=== PATIENT | female | born 1940 | race Caucasian/White ===

== ENCOUNTER 2017-08-08 08:35 | Outpatient (CLI) | payer MEDICARE, BC ==
[2017-08-08] MEDS ORDERED: Iopamidol 370 76% 100 ML VIAL ONE (14:48)
== END 2017-08-08 08:36 | disposition home or self-care (01) ==
LOC: BICCT 08:35
PROVIDERS: ATTEND Urology
DX: N28.89 Other specified disorders of kidney and ureter (principal); N28.1 Cyst of kidney, acquired
CPT/HCPCS: 74170

== ENCOUNTER 2018-06-29 09:18 | Outpatient (CLI) | payer MEDICARE, BC ==
--- NOTE | 2018-06-29 11:13 | MRI ---
MRI OF LUMBAR SPINE WITHOUT CONTRAST: Date: 06-29-18 Comparison: None. History: Acute left sided low back pain with left lower extremity radiculopathy, left sciatica. Technique: Multiplanar, multisequence MR imaging of the lumbar spine provided without contrast. FINDINGS: The sagittal STIR imaging demonstrates no focal area of osseous marrow edema. There is mild anterolisthesis of L3-4 measuring 5-6 mm. Sagittal STIR imaging demonstrates no focal a yaya of osseous marrow edema. There is fluid signal intensity within bilateral facet joints at L3-4. O n the basis of five lumbar type vertebral bodies, the conus medullaris terminates at the T12-L1 level . T12-L1: Intervertebral disc height and signal intensity grossly unremarkable with no significant cent ral canal or neural foraminal stenosis. Incidental note is made of a benign T12 hemangioma. L1-2: Intervertebral disc height and signal intensity within normal limits. No central canal or neura l foraminal stenosis. L2-3: Moderate bilateral facet hypertrophy. Disc space narrowing, disc desiccation and disc bulge pre sent with a superimposed left paracentral disc protrusion. There is moderate central canal stenosis/l eft lateral recess stenosis. Mild bilateral neural foraminal stenosis. L3-4: A prominent facet hypertrophy and hypertrophy of ligamentum flavum. There is disc space narrowi ng, disc desiccation, and mild disc bulge with a moderate to severe degree of central canal stenosis. Mild bilateral neural foraminal stenosis. L4-5: Mild bilateral facet hypertrophy. There is disc space narrowing, disc desiccation and partial o sseous fusion at the intervertebral disc level. There is mild right neural foraminal stenosis. No sig nificant central canal or left neural foraminal stenosis. L5-S1: Disc space narrowing, disc desiccation and mild bilateral facet hypertrophy with no significan t central canal or neural foraminal stenosis. Large lobulated incompletely assessed T2 hyperintense lesion noted within the right kidney measuring up to 5.9 cm. This is consistent with a large cyst when correlated with the CT examination of the abd omen performed 08-08-17 utilizing a renal mass protocol. Additional scattered T2 hyperintensities are n oted within both kidneys suggesting additional small cysts. IMPRESSION: Significant multilevel degenerative change noted within the lumbar spine, most significant at the L2- 3 and L3-4 levels as detailed above. Fluid within the facet joints at L3-4 can be seen on the basis o f instability. Flexion and extension radiographs may be beneficial for further assessment. POS: [facility]
== END 2018-06-29 09:19 | disposition home or self-care (01) ==
LOC: BICMRI 09:18
PROVIDERS: ATTEND Internal Medicine Geriatric Medicine
DX: M54.42 Lumbago with sciatica, left side (principal); M47.816 Spondylosis without myelopathy or radiculopathy, lumbar region
CPT/HCPCS: 72148

== ENCOUNTER 2018-09-10 10:12 | Outpatient (CLI) | payer MEDICARE, BC ==
--- NOTE | 2018-09-10 11:42 | MMO ---
Bilateral MAMMO Bilat Screen [facility]. CLINICAL HISTORY: Patient is 78 years old and is seen for screening. The patient has no family history of breast cancer. The patient has a history of Skin cancer. The patient has a history of right Excisional Biopsy at age 46 - benign. VIEWS: The views performed were: bilateral craniocaudal with tomosynthesis and bilateral mediolateral oblique with tomosynthesis. FILMS COMPARED: The present examination has been compared to prior imaging studies performed at [facility] on 10/05/2011, at [facility] on 12/10/1997, and at [facility] on 06/03/2004, 05/03/2006 and 07/16/2008. MAMMOGRAM FINDINGS: There are scattered fibroglandular densities. There are no suspicious masses, suspicious calcifications, or new areas of architectural distortion. IMPRESSION: THERE IS NO MAMMOGRAPHIC EVIDENCE OF MALIGNANCY. A ROUTINE FOLLOW-UP MAMMOGRAM IN 1 YEAR IS RECOMMENDED. THE RESULTS OF THIS EXAM WERE SENT TO THE PATIENT. ACR BI-RADS Category 1 - Negative MAMMOGRAPHY NOTE: 1. A negative mammogram report should not delay a biopsy if a dominant of clinically suspicious mass is present. 2. Approximately 10% to 15% of breast cancers are not detected by mammography. 3. Adenosis and dense breasts may obscure an underlying neoplasm.
--- NOTE | 2018-09-10 12:15 | BD ---
DEXA BONE DENSITY STUDY: Date: 09/10/18 HISTORY: Postmenopausal. FINDINGS: Lumbar Spine: BMD (g/cm2) L1 0.925 T-Score: -0.6 L2 1.023 T-Score: +0.0 L3 1.173 T-Score: +0.8 L4 0.992 T-Score: -0.6 Total 1.025 T-Score: -0.2 Left Femoral Neck: 0.691 T-Score: -1.4 Total Femur: 0.845 T-Score: -0.8 IMPRESSION: 1. Osteopenia of left femoral neck. 2. Normal bone mineral density of the lumbar spine. POS: [facility]
== END 2018-09-10 10:13 | disposition home or self-care (01) ==
LOC: BICMAMMO 10:12
PROVIDERS: ATTEND Internal Medicine Geriatric Medicine
DX: Z12.31 Encounter for screening mammogram for malignant neoplasm of breast (principal); Z13.820 Encounter for screening for osteoporosis; M85.852 Other specified disorders of bone density and structure, left thigh; Z85.828 Personal history of other malignant neoplasm of skin
CPT/HCPCS: 77063; 77067; 77080

== ENCOUNTER 2019-03-26 10:51 | Outpatient (CLI) | payer MEDICARE, BC ==
--- NOTE | 2019-03-26 12:56 | CT ---
CT Abdomen W WO Con History: Left renal mass Comparison: Lumbar spine MRI June 2018 Findings: Well-defined nodule left lower lobe axial image 17 measures 6 mm. There is no nephrouretero lithiasis or hydroureteronephrosis. No secondary evidence of a recently passed stone. Corresponding to the abnormality seen on the lumbar spine MRI is a large, endophytic cysts at the sup erior and interpolar right kidney with splaying of the superior calyx. This does not contain contrast on the delayed phase. There is a smaller posterior cortex interpolar cyst right kidney. Multifocal left small renal cortica l cysts are present. No solid enhancing mass. Appears be a lumbosacral transitional vertebra. Lower thoracic spine vertebral hemangioma. The liver, spleen, pancreas, adrenal glands, gallbladder are all normal. No retroperitoneal periaorti c adenopathy. No dilated loops of large or small bowel. Impression: 1. Large right superior and interpolar predominantly endophytic cyst corresponding to the abnormality seen on the recent lumbar spine MRI. 2. 6 millimeter nodule left lower lobe axial image 17. Follow-up chest CT in 3 months recommended
[2019-03-26] MEDS ORDERED: Iopamidol-370 76% 500 ML 1 ML ONE (13:43)
== END 2019-03-26 10:52 | disposition home or self-care (01) ==
LOC: BICCT 10:51
PROVIDERS: ATTEND Urology
DX: N28.89 Other specified disorders of kidney and ureter (principal); N28.1 Cyst of kidney, acquired; R91.1 Solitary pulmonary nodule
CPT/HCPCS: 74170; 82565; Q9967

== ENCOUNTER 2021-03-12 10:30 | Outpatient (CLI) | payer MEDICARE, BC ==
[2021-03-12] MEDS ORDERED: Iopamidol-370 76% 500 ML 1 ML ONE (12:01)
== END 2021-03-12 10:31 | disposition home or self-care (01) ==
LOC: BICCT 10:30
PROVIDERS: ATTEND Urology
DX: N28.89 Other specified disorders of kidney and ureter (principal); R91.8 Other nonspecific abnormal finding of lung field; N28.1 Cyst of kidney, acquired
CPT/HCPCS: 74170; Q9967